=== PATIENT | female | born 1940 | race Caucasian/White ===

== ENCOUNTER → 2020-02-10 13:25 | Outpatient (CLI) | payer OTHER, MEDICAID, SELFPAY ==
--- NOTE | 2020-02-10 | DI.RAD.S_ITS ---
PROCEDURE: FL BARIUM SWALLOW W SPEECH INDICATIONS: DYSPHAGIA, UNSPECIFIED COMPARISON: None. TECHNIQUE: Examination was conducted in conjunction with speech pathology per standard protocol. In the lateral projection, filming was performed of the patient swallowing. AP projection filming may also be performed with patient swallowing. COMPARISON: FINDINGS: Function: The oral preparatory phase appears normal, with proper containment. The subsequent oral propulsive phase, pharyngeal phase, and esophageal phase of swallowing also appear normal with all proffered substances. There is a single visualized initial episode of slight laryngotracheal penetration but no aspiration. No anterior penetration thereafter. No pathologic vallecular pooling. Morphology: No cricopharyngeal bar is identified. No cervical esophageal webs. No Zenker's diverticulum. No strictures. IMPRESSION: At the initiation of the study there was a single episode of anterior penetration of the single-contrast barium solution but thereafter excellent swallowing mechanism was noted with all proferred substances. Please also refer to the dedicated speech therapy swallowing evaluation report which will be independently generated. Dictated by: Darrell Mccormick M.D. on 02/10/2020 at 15:50 Approved by: Darrell Mccormick M.D. on 02/10/2020 at 15:51
--- NOTE | 2020-02-10 15:13 | ST.SWALLOW ---
Visit Care Team Role Provider Type CHRISTA De La Cruz Attending Provider Non-Staff Primary Care Provider Referring Provider Specialty: Family Practice Address: [address] [place] [address], [id number] Email: Modified Barium Swallow Study CLOUD PHYSICIST Modified Barium Swallow Study Start: 02/10/20 14:27 Freq: Status: Active Protocol: Document 02/10/20 14:27 MARY (Rec: 02/10/20 15:07 MARY [id number]) Modified Barium Swallow Study Total Time Visit Start Time 13:30 Visit Stop Time 14:10 Total Visit Minutes 50 Referral Referring Physician CHRISTA De La Cruz Reason for Referral Dysphagia Setting Setting Outpatient Care Patient Information Identification Type Name,ID Card Patient History The pt is an 79-yr-old female who arrived with assistance from her caregiver, Sandra, who is the orientation and mobility instructor of [employer] [facility] where the pt resides. Per CG report, the pt had viral pneumonia in 2019 and since then has experienced general weakening including weakening of her voice. She has recently been observed coughing with oral intake. The pt stated she coughs mostly with liquids. Modified Barium Swallow Study was ordered for swallow evaluation. Subjective Observations The pt arrived, accompanied by CG. She is wheelchair bound and was transferred by staff into fluorscopy chair. After obtaining case history, the clinician explained the object and process of the procedure, and the pt was in agreement to proceed. Patient Positioning Position View Lateral Imaging Lateral View Textures Administered Trials Presented Thin Liquid via Spoon,Thin Liquid via Cup,Thin Liquid via Straw,Rhame Liquid via Spoon ,Rhame Liquid via Cup,Honey Liquid via Spoon,Dysphagia Blenderized Textures,Regular Textures Oral Phase Source: MBSIMP (TM) (C) Bolus Specific Scoring Grid Lip Closure WFL Tongue Control During Bolus Hold WFL Bolus Prep/Mastication WFL Bolus Transport/Lingual Motion WFL A/P Lingual Propulsion Delay No Oral Residue Minimal Impairment Residue Clearing WFL Nasal Regurgitation No Additional Oral Phase Observations Oral Peripheral Exam: L-side facial droop including cloudy and wandering left eye. Lingual deviation to left upon protrusion. Reduced lingual strength. Reduced labial and buccal ROM and coordination. Pt has sparse natural dentition in adequate condition for age. Oral Phase: Rapid a/p transit and swallow trigger. Anterior munching observed with cookie trial, which is appropriate and consistent with the pt's dentition. The pt struggled to with a/p transport and swallow trigger with cookie, with mild lingual rocking observed. Once swallow was initiated, the bolus passed completely in a single swallow . Pharyngeal Phase Source: MBSIMP (TM) (C) Bolus Specific Scoring Grid Delayed Initiation of Pharyngeal Swallow Yes: With cookie bolus only Soft Palate Elevation No Impairment (WNL) Tongue Base Strength/Range of Motion Moderate Impairment Residue Along the Tongue Base Yes: Trace to mild, collected in vallecula Clearance of Residue Along Tongue Base No Impairment (WNL) Laryngeal Elevation No Impairment (WNL) Anterior Hyoid Movement WFL Epiglottic Range of Motion No Impairment (WNL) Vallecular Residue Yes Clearance of Vallecular Residue No Impairment (WNL) Laryngeal Vestibular Closure WFL Pharyngeal Stripping Wave WFL Posterior Pharyngeal Wall Residue No Upper Esophageal Sphincter Opening No Impairment (WNL) Residue in the Pyriform Sinuses No Pharyngoesophageal Backflow Observed No Additional Pharyngeal Phase Observations Flash penetration of initial bolus (tsp thin liquid) was observed, with no cough response. Bolus transported to vallecula with minimal amount extending to the posterior side of epiglottis. The latter penetrated into the laryngeal vestibule upon swallow trigger and was ejected during swallow (PAS-2). Mild residue from oral cavity and base of tongue collected in vallecula post swallow on all trials of thin liquid and minimal amounts with NTL. The pt was prompted to swallow again, and this cleared the residue. No other penetration or aspiration was observed with all remaining boluses, nor significant oral or pharyngeal residue. A/P View Clinical Impressions Dysphagia Type Mild oral dysphagia Findings The pt presents with mild oral dysphagia secondary to reduced lingual strength and sparse dentition. Mild oral residue was present with thin liquids and minimal residue with NTLs. Thin liquid residue spilled to vallecula where it collected without swallow response from the pt. She required prompts to perform second swallow, which effectively cleared the residue. It is possible that in functional situations, such oral residue spills beyond the vallecula and into the pt's open airway post swallow, causing a delayed cough. Double swallow with liquids is recommended to prevent this. The pt did also present with weak, hoarse and breathy voice. or outpatient speech therapy is recommended for voice evaluation and treatment as indicated, as well as ongoing swallow assessment and training of compensatory swallow strategies. Rehabilitation Potential Good Patient Appropriate for Therapy Yes Recommendations Diet Liquids Order Thin Diet Order Mechanical Soft Medication Recommendation As Tolerated Comments Mechanical soft texture recommended secondary to dentition Additional Dietary Needs Reminders to Use Strategies Aspiration Precautions Recommended Precautions Upright at 90 Degrees,Small Bites/Sips,Double Swallow Additional Precautions Double swallow with liquids Treatment Plan Therapy Recommendations Vocal Fold Adduction Exercises ,Compensatory Strategy Education,Other Additional Therapy Recommendations Outpatient or Speech Therapy for dysphagia & voice Compensatory Strategies Recommendations Sitting Upright (90 deg), Double Swallow,Small Bites and Sips Short Term Goals 1. The pt will perform double swallow with intake of liquids to reduce oral residue and risk of aspiration. [employer] Goals 1. The pt will tolerate least restrictive diet to meet her nutrition and hydration needs. Placement Recommendation After Discharge [facility],Home with Home Health
== END ==
PROVIDERS: PCP Nurse Practitioner; Referring Provider Nurse Practitioner; Visit Provider Nurse Practitioner
DX: R13.10 Dysphagia, unspecified (principal)
CPT/HCPCS: 74230; 92611

== ENCOUNTER → 2020-05-30 14:20 | Outpatient (CLI) | payer OTHER, MEDICAID, SELFPAY ==
--- NOTE | 2020-05-30 | DI.MRI.S_ITS ---
PROCEDURE: MR PELVIS WO/W CON INDICATIONS: Ovarian mass, Vaginal bleeding TECHNIQUE: Coronal HASTE, sagittal breath-hold T2 FSE; axial T1 FSE with and without fat saturation through the pelvis. Optional long- and short-axis uterine nonbreath-hold T2 FSE through the uterus. Sagittal or axial dynamic VIBE during administration of contrast. Post-contrast axial or coronal VIBE/2-D FLASH with fat saturation from the iliac crests to the symphysis. Optional diffusion weighted imaging and ADC may be performed. COMPARISON: None. FINDINGS: Image quality: Excellent. Uterus: Uterus is atrophic. Endometrium is normal in thickness. Junctional zone is poorly visualized due to uterine size, but is not significantly thickened. Adnexa: A right adnexal cystic lesion measures 6.9 x 5.0 x 5.2 cm with multiple thin septations. No suspicious solid components are identified. No solid adnexal mass is seen. The left ovary is not well visualized, likely secondary to small size. Urinary system: Bladder wall is normal in thickness. Distal ureters are non distended. Urethra appears normal in morphology. Nodes and vessels: No pelvic or inguinal adenopathy by size criteria. Iliac vessels are normal in size. Bowel and peritoneum: No pathologic free pelvic fluid. Inferior colon and small bowel loops are normal in caliber. Soft tissues: No inguinal hernias. No findings of pelvic floor incompetence in the absence of provocation. A small periumbilical hernia contains fat and one wall of a loop of bowel without signs of bowel obstruction. Bones: Marrow demonstrates normal overall signal. Multilevel degenerative changes are seen in the included spine resulting in probable moderate to high-grade spinal canal stenosis. IMPRESSION: Multiseptated cystic lesion in the right adnexa measures 6.9 x 5.0 x 5.2 cm, and may represent a benign or malignant cystic neoplasm such as a serous cystadenoma/cystadenocarcinoma, versus a complicated ovarian or paraovarian cyst. No solid enhancing components or thick septations are identified. No suspicious lymphadenopathy. Dictated by: Allan Allen M.D. on 05/30/2020 at 17:01 Approved by: Allan Allen M.D. on 05/30/2020 at 17:19
== END ==
PROVIDERS: PCP Nurse Practitioner; Referring Provider Obstetrics & Gynecology; Visit Provider Obstetrics & Gynecology
DX: N93.9 Abnormal uterine and vaginal bleeding, unspecified (principal); N83.9 Noninflammatory disorder of ovary, fallopian tube and broad ligament, unspecified
CPT/HCPCS: 72197; A9579